=== PATIENT | male | born 1990 | race African-American/Black ===

== ENCOUNTER 2020-12-15 09:33 | Emergency (ER) | payer SELFPAY ==
[~2020-12-15] VITALS: Ht 182.9 cm; Wt 87.0 kg
[2020-12-15 09:35] VITALS: BP 135/66
[2020-12-15] MEDS ORDERED: ONDANSETRON HCL 4MG/2ML INJ IV STA (10:39)
[2020-12-15] MEDS ORDERED: ACETAMINOPHEN 325MG TABLET PO STA (10:39)
[2020-12-15] MEDS ORDERED: SODIUM CHLORIDE 0.9% 1,000 ML IV ONE (10:45)
== END 2020-12-15 16:02 | disposition left against medical advice (07) ==
LOC: ER 09:33
DX: R10.84 Generalized abdominal pain (principal); R11.0 Nausea; F16.10 Hallucinogen abuse, uncomplicated; I10 Essential (primary) hypertension
CPT/HCPCS: 99283; J7030